=== PATIENT | female | born 1990 | race Caucasian/White ===

== ENCOUNTER 2018-05-04 20:29 | Emergency (ER) | payer OTHER, MEDICAID ==
[~2018-05-04] VITALS: Ht 157.5 cm; Wt 56.7 kg
[~2018-05-04 20:29] MED LIST: ALPRAZOLAM1 M1 PO; CLEOCIN HCL300 MG PO; CYMBALTA20 MG; DOXYCYCLINE 10100 MG PO; IBUPROFEN 800800 M1 PO; KEFLEX500 MG PO; NOHOMEMEDICATIONS; PENICILLIN VK250 MG PO; PENICILLIN VK500 M1 PO; PHENERGAN 25 MG25 M1 PO; TRAMADOL 50 MG50 MG PO; ULTRAM 50MG TAB50 MG PO; XANAX XR1 MG PO; ZOFRAN4 MG PO; ZOLOFT 50 MG TA50 MG PO
[2018-05-04 21:23] LABS: INFLUENZA A ANTIGEN None Detected (None Detect)
[2018-05-04 22:06] VITALS: BP 94/59
[2018-05-05] MEDS ORDERED: PROMETH-CODEIN 65 ML PO (21:58)
[2018-05-05] MEDS ORDERED: TAMIFLU75 MG PO (21:58)
== END 2018-05-04 22:54 | disposition left against medical advice (07) ==
LOC: M.ERS 20:29
PROVIDERS: Nurse Practitioner Family
DX: Z53.21 Procedure and treatment not carried out due to patient leaving prior to being seen by health care provider (principal)

== ENCOUNTER 2018-05-05 20:25 | Emergency (ER) | payer OTHER ==
[~2018-05-05] VITALS: Ht 157.5 cm; Wt 56.7 kg
[2018-05-05] MEDS ORDERED: PROMETH-CODEIN 65 ML PO (21:58)
[2018-05-05] MEDS ORDERED: TAMIFLU75 MG PO (21:58)
[2018-05-05 22:22] VITALS: BP 97/63
== END 2018-05-05 22:22 | disposition home or self-care (01) ==
LOC: M.ERS 20:25
DX: J11.1 Influenza due to unidentified influenza virus with other respiratory manifestations (principal)

== ENCOUNTER 2019-05-11 15:49 | Emergency (ER) | payer OTHER, MEDICAID ==
[~2019-05-11] VITALS: Ht 157.5 cm; Wt 62.6 kg
[~2019-05-11 15:49] MED LIST changes: +PROMETH-CODEIN 65 ML PO; +TAMIFLU75 MG PO
[2019-05-11 16:42] LABS: INFLUENZA A ANTIGEN Negative (Negative)
[2019-05-11] MEDS ORDERED: TAMIFLU75 MG PO (16:58)
[2019-05-11] MEDS ORDERED: ZOFRAN ODT4 MG PO (16:58)
[2019-05-11 17:12] VITALS: BP 106/72
== END 2019-05-11 17:13 | disposition home or self-care (01) ==
LOC: M.ERS 15:49
PROVIDERS: Nurse Practitioner Family
DX: J10.1 Influenza due to other identified influenza virus with other respiratory manifestations (principal); F17.210 Nicotine dependence, cigarettes, uncomplicated

== ENCOUNTER 2020-01-22 16:09 | Emergency (ER) | payer OTHER, MEDICAID ==
[~2020-01-22] VITALS: Ht 157.5 cm; Wt 69.0 kg
[~2020-01-22 16:09] MED LIST changes: +ZOFRAN ODT4 MG PO
[2020-01-22] MEDS ORDERED: OXCARBAZEPINE600 MG PO (16:16)
[2020-01-22] MEDS ORDERED: BUSPIRONE HCL7.5 MG PO (16:16)
[2020-01-22] MEDS ORDERED: HYDROXYZINE HCL25 M2 PO (16:16)
[2020-01-22 16:57] LABS: INFLUENZA A ANTIGEN Negative (Negative); INFLUENZA B ANTIGEN Negative (Negative)
[2020-01-22] MEDS ORDERED: VENTOLIN HFA 1818 GM INH (17:06)
[2020-01-22] MEDS ORDERED: ZPAK PO (17:06)
[2020-01-22 17:17] VITALS: BP 112/82
== END 2020-01-22 17:18 | disposition home or self-care (01) ==
LOC: M.ERS 16:09
PROVIDERS: Nurse Practitioner Family
DX: B34.9 Viral infection, unspecified (principal); Z20.828 Contact with and (suspected) exposure to other viral communicable diseases; F17.210 Nicotine dependence, cigarettes, uncomplicated; Z79.899 Other long term (current) drug therapy

== ENCOUNTER 2020-03-23 18:39 | Emergency (ER) | payer OTHER, MEDICAID ==
[~2020-03-23] VITALS: Ht 157.5 cm; Wt 69.0 kg
[~2020-03-23 18:39] MED LIST changes: +BUSPIRONE HCL7.5 MG PO; +HYDROXYZINE HCL25 M2 PO; +OXCARBAZEPINE600 MG PO; +VENTOLIN HFA 1818 GM INH; +ZPAK PO
[2020-03-23 20:35] VITALS: BP 120/59
== END 2020-03-23 20:35 | disposition home or self-care (01) ==
LOC: M.ERS 18:39
DX: J06.9 Acute upper respiratory infection, unspecified (principal); Z20.828 Contact with and (suspected) exposure to other viral communicable diseases; F17.210 Nicotine dependence, cigarettes, uncomplicated; Z79.899 Other long term (current) drug therapy